=== PATIENT | male | born 1970 | race Caucasian/White ===

== ENCOUNTER 2016-08-03 18:33 | Emergency (ER) | payer SELFPAY ==
[~2016-08-03] VITALS: Ht 175.3 cm; Wt 70.0 kg
[~2016-08-03 18:33] MED LIST: MOTRIN800 MG PO; NOHOMEMEDS
[2016-08-03 19:53] VITALS: BP 118/64
== END 2016-08-03 19:53 | disposition home or self-care (01) ==
LOC: EME → EDBD 18:33 → EME 19:53
DX: T69.9XXA Effect of reduced temperature, unspecified, initial encounter (principal); W16.112A Fall into natural body of water striking water surface causing other injury, initial encounter; Y93.01 Activity, walking, marching and hiking; F17.200 Nicotine dependence, unspecified, uncomplicated
CPT/HCPCS: 99281; 99283

== ENCOUNTER 2017-08-05 14:24 | Emergency (ER) | payer SELFPAY ==
[~2017-08-05] VITALS: Ht 175.3 cm; Wt 71.7 kg
[2017-08-05 15:04] LABS: CARBON DIOXIDE (BICARBONATE) 30.6 MEQ/L (20-31)
[2017-08-05 15:06] LABS: BASOPHIL (%) 0.6 % (0-1); BASOPHIL COUNT 0.1 K/uL (0-0.1); EOSINOPHIL (%) 0.7 % (0-5); EOSINOPHIL COUNT 0.1 K/uL (0-0.3); HEMATOCRIT 42.2 % (38.0-50.0); HEMOGLOBIN 14.8 G/DL (12.5-16.6); IMMATURE GRANULOCYTE (%) 0.7 % (0.0-0.7); LYMPHOCYTE (%) 31.4 % (15-42); LYMPHOCYTE COUNT 3.8 K/uL (1.0-2.8); MCH 33.4 PG (29.0-34.0); MCHC 35.1 G/DL (30.0-36.0); MCV 95.3 FL (86-99); MONOCYTE (%) 8.3 % (3-12); NEUTROPHIL (%) 58.3 % (45-76); NEUTROPHIL COUNT 7.1 K/uL (1.8-6.4); PLATELET COUNT 228 K/uL (156-360); RBC DIS.WIDTH-CV 11.9 % (11.8-14.6); RBC DIS.WIDTH-SD 41.5 % (39-53); RED BLOOD COUNT 4.43 M/uL (4.00-5.50); WHITE BLOOD COUNT 12.1 K/uL (4.1-10.2)
[2017-08-05 15:17] LABS: ALBUMIN 4.5 g/dL (3.2-4.8)
[2017-08-05 15:18] LABS: CHLORIDE 107 mEq/L (99-109); POTASSIUM 3.9 mEq/L (3.7-5.4); SODIUM 143 mEq/L (136-147)
[2017-08-05 15:20] LABS: GLUCOSE 94 mg/dL (70-99); TOTAL PROTEIN 8.1 g/dL (6.4-8.3)
[2017-08-05 15:22] LABS: TOTAL BILIRUBIN 0.3 mg/dL (0.0-1.0)
[2017-08-05 15:23] LABS: ALKALINE PHOSPHATASE 112 IU/L (3-129)
[2017-08-05 15:24] LABS: CREATININE 0.7 mg/dL (0.6-1.3); GFR ESTIMATE (CALCULATED) > 59 mL/min/ (58.99-99999)
[2017-08-05 15:25] LABS: AST (GOT) 27 IU/L (2-34); UREA NITROGEN (BUN) 11 mg/dL (9-23)
[2017-08-05 15:26] LABS: ALT (GPT) 17 IU/L (3-49)
[2017-08-05 15:27] LABS: CREATINE KINASE 130 IU/L (1-294)
[2017-08-05 16:29] LABS: APPEARANCE CLEAR ((CLEAR)); BILIRUBIN NEGATIVE; BLOOD NEGATIVE; COLOR STRAW ((YELLOW)); GLUCOSE (STRIP) NEGATIVE; KETONES NEGATIVE; LEUKOCYTES NEGATIVE; NITRITE NEGATIVE; PROTEIN (STRIP) NEGATIVE; SPECIFIC GRAVITY 1.003 (1.000-1.030); UCUL ADDED? NO; UROBILINOGEN 0.2 MG/DL (0.2-1.0)
[2017-08-05 16:46] VITALS: BP 143/96
== END 2017-08-05 16:49 | disposition designated cancer center or children's hospital, planned readmission (85) ==
LOC: TRA 14:24
PROVIDERS: Emergency Medicine
DX: T20.29XA Burn of second degree of multiple sites of head, face, and neck, initial encounter (principal); X08.0 Exposure to bed fire; Y93.84 Activity, sleeping; Y92.003 Bedroom of unspecified non-institutional (private) residence as the place of occurrence of the external cause; F17.200 Nicotine dependence, unspecified, uncomplicated
CPT/HCPCS: 80053; 81003; 82140; 82550; 82803; 83605; 85025; 99281; 99285; J2270; J7030